=== PATIENT | male | born 1965 | race Caucasian/White ===

== ENCOUNTER → 2018-06-23 | Outpatient (REF) | payer BC | LOC: M SFHCLERA 13:21 | DX: K12.2 Cellulitis and abscess of mouth (principal) ==

== ENCOUNTER → 2020-12-20 | Outpatient (CLI) | payer BC ==
[~2020-12-20] MED LIST: BACT800T; CLEO300C; IBUP600T; VICO5TAB
[2020-12-20 14:51] LABS: BASO # 0.1 10^3/uL (0.0-0.2); BASO % 0.9 % (0.0-1.0); EOS # 0.2 10^3/uL (0.0-0.5); EOS % 2.6 % (0.0-3.0); HEMATOCRIT 41.5 % (42.0-52.0); LYMPH # 1.6 10^3/uL (1.5-5.0); LYMPH % 26.8 % (24.0-44.0); MEAN CORPUSCULAR HEMOGLOBIN 29.7 pg (27.0-33.0); MEAN CORPUSCULAR HGB CONC 33.7 g/dl (32.0-36.5); MEAN CORPUSCULAR VOLUME 88.1 fl (80.0-96.0); MONO # 0.4 10^3/uL (0.0-0.8); MONO % 7.3 % (2.0-8.0); NEUTROPHILS # 3.6 10^3/uL (1.5-8.5); NEUTROPHILS % 62.2 % (36.0-66.0); PLATELET COUNT, AUTOMATED 283 10^3/uL (150-450); RED BLOOD COUNT 4.71 10^6/uL (4.30-6.10); WHITE BLOOD COUNT 5.8 10^3/uL (4.0-10.0)
[2020-12-20 15:12] LABS: ERYTHROCYTE SEDIMENTATION RATE 3 mm/hr (0-20)
[2020-12-20 15:15] LABS: ALBUMIN 4.1 GM/DL (3.2-5.2); ALT/SGPT 28 U/L (12-78); BILIRUBIN,TOTAL 0.3 MG/DL (0.2-1.0); BLOOD UREA NITROGEN 23 MG/DL (7-18); CALCIUM LEVEL 8.9 MG/DL (8.5-10.1); CARBON DIOXIDE LEVEL 27 MEQ/L (21-32); CHLORIDE LEVEL 109 MEQ/L (98-107); CREATININE FOR GFR 0.92 MG/DL (0.70-1.30); GLOMERULAR FILTRATION RATE > 60.0 (>56); GLUCOSE, FASTING 111 MG/DL (70-100); POTASSIUM SERUM 3.9 MEQ/L (3.5-5.1); SODIUM LEVEL 139 MEQ/L (136-145); TOTAL PROTEIN 7.1 GM/DL (6.4-8.2)
--- NOTE | 2020-12-20 15:20 | REP ---
INDICATION: PAIN IN UNSPECIFIED JOINT, LAB 1ST THEN XR. COMPARISON: None. TECHNIQUE: AP, angled, and bilateral oblique views of the sacroiliac joints. FINDINGS: Bilateral sacroiliac joints are relatively symmetric and age-appropriate. IMPRESSION: Relatively symmetric normal age-appropriate examination. <Electronically signed by Nirmal Pickett > 12/20/20 [id number]
--- NOTE | 2020-12-20 15:21 | REP ---
INDICATION: PAIN IN UNSPECIFIED JOINT, LAB 1ST THEN XR COMPARISON: None. TECHNIQUE: AP, lateral, bilateral oblique views right and left hand. FINDINGS: The osseous structures, joint spaces, and surrounding soft tissues are essentially symmetric, age-appropriate, and normal. No overt osteoarthritic or inflammatory arthritic changes are appreciated. No evidence for acute or healed injury. IMPRESSION: Normal symmetric age-appropriate bilateral hand radiograph series.. <Electronically signed by Nirmal Pickett > 12/20/20 [id number]
--- NOTE | 2020-12-20 15:21 | REP ---
INDICATION: PAIN IN UNSPECIFIED JOINT, LAB 1ST THEN XR COMPARISON: None. TECHNIQUE: AP, lateral, bilateral oblique views right and left foot. FINDINGS: The osseous structures, joint spaces, and surrounding soft tissues are symmetric, age-appropriate and normal. No overt osteoarthritic or inflammatory arthritic changes are appreciated. No evidence for acute or healed injury. IMPRESSION: Normal symmetric bilateral foot radiographs. <Electronically signed by Nirmal Pickett > 12/20/20 [id number]
== END ==
LOC: M LAB 14:14
PROVIDERS: ATTEND Internal Medicine Rheumatology
DX: M25.50 Pain in unspecified joint (principal)

== ENCOUNTER → 2023-04-13 | Outpatient (CLI) | payer OTHER, BC | LOC: M SLEEP 20:00 | PROVIDERS: ATTEND Internal Medicine | DX: G47.61 Periodic limb movement disorder (principal); G47.33 Obstructive sleep apnea (adult) (pediatric) ==

== ENCOUNTER → 2024-07-14 | Outpatient (CLI) | payer BC, OTHER | LOC: M RAD 13:00 | PROVIDERS: ATTEND Internal Medicine Critical Care Medicine | DX: R91.8 Other nonspecific abnormal finding of lung field (principal) ==